=== PATIENT | male | born 1975 | race Caucasian/White ===

== ENCOUNTER 2024-08-25 14:53 | Emergency (ER) | payer OTHER ==
[~2024-08-25] VITALS: Ht 170.2 cm; Wt 105.0 kg
[2024-08-25 15:12] VITALS: TEMP 36.9; O2SAT 97
[2024-08-25 15:17] VITALS: O2SAT 98
[2024-08-25] MEDS: DEXAMETHASONE 10 MG/ML VIAL IM ONE (16:17)
[2024-08-25 16:18] VITALS: BP 150/98; PULSE 88; RESP 20
[2024-08-25] MEDS: KETOROLAC 30MG/ML VIAL IM ONE (16:18)
[2024-08-25] MEDS ORDERED: AMOX-494 MT (17:54)
[2024-08-25] MEDS ORDERED: IBUP100O21 MT (17:55)
[2024-08-25] MEDS ORDERED: IBUP-2030 MT (17:55)
== END 2024-08-25 18:09 | disposition home or self-care (01) ==
LOC: ER 14:53
DX: J35.1 Hypertrophy of tonsils (principal); Z79.899 Other long term (current) drug therapy
CPT/HCPCS: 87430; 96372; 99284; J1100; J1885; Z7610